=== PATIENT | female | born 1980 | race Asian ===

== ENCOUNTER 2016-12-11 05:07 | Day surgery (SDC) | payer BC ==
[2016-12-06 13:36] VITALS: BMI 27.4
[2016-12-11] MEDS ORDERED: IBUPROFEN 400 MG TABLET (FP) PO PRN (08:22)
[2016-12-11] MEDS ORDERED: ACETAMINOPHEN 325 MG TABLET (FP) PO PRN (08:22)
--- NOTE | 2016-12-11 08:22 | HP ---
History & Physical Update - History History: No Change - Physical Physical: No Change - Assessment Assessment: No Change - Plan Plan: No Change
[2016-12-11] MEDS ORDERED: BUPIVACAINE HCL/PF 0.5% (5MG/ML) 10 ML VIAL ONE (11:08)
[2016-12-11] MEDS ORDERED: MIDAZOLAM HCL 2 MG/2 ML SINGLE DOSE VIAL ONE (11:33)
--- NOTE | 2016-12-11 11:52 | OP ---
Operative Note - Note: Operative Date: 12/11/16 Pre-Operative Diagnosis: Voluntary Sterilization. Ovarian cyst Operation: Laparscopic bilateral salpingectomy. Left ovarian cystectomy Findings: 2-3 cm paraovarian cyst normal fallopian tubes Post-Operative Diagnosis: Same as Pre-op Surgeon: Stefanie Yu Child Guidance Counselor: Nayla Hernandes Anesthesia: General Estimated Blood Loss (mls): 5 Operative Report Dictated: Yes
[2016-12-11] MEDS ORDERED: PROPOFOL 20 ML ONE (12:06)
[2016-12-11] MEDS ORDERED: ceFAZolin SODIUM 1 GM VIAL IVPB ONE (12:10)
[2016-12-11] MEDS ORDERED: NEOSTIGMINE METHYLSULFATE 0.5 MG/ML - 10 ML MDV ONE (12:26)
[2016-12-11] MEDS ORDERED: BUPIVACAINE HCL/PF 0.5% (5MG/ML) 10 ML VIAL IJ ONE ×2 (12:31)
[2016-12-11] MEDS ORDERED: oxyCODONE HCL 5 MG TABLET PO PRN (13:04)
[2016-12-11] MEDS ORDERED: PROMETHAZINE HCL 25 MG/1 ML VIAL IVPUSH PRN (13:04)
[2016-12-11 13:56] VITALS: TEMP 97.8
[2016-12-11 16:56] VITALS: BP 106/58; PULSE 54
--- NOTE | 2016-12-12 10:40 | OP ---
DATE OF OPERATION: 12/11/2016 PREOPERATIVE DIAGNOSES: Ovarian cyst and multiparity, voluntary sterilization. OPERATION: Laparoscopic bilateral salpingectomy and left ovarian cystectomy. SURGEON: Raegan Rojas MD GENETIC SUPERVISOR: Nayla Hernandes DO ANESTHESIA: General. ANESTHESIOLOGIST: Farhan Hernandez MD FINDINGS: Left paraovarian cyst about 3 cm and normal tubes and ovaries. DESCRIPTION OF PROCEDURE: Patient was taken to the operating room, placed in dorsal lithotomy position, prepped and draped in the usual sterile fashion. A timeout was performed in accordance with hospital regulation. Headley catheter was inserted into the bladder. Attention was then drawn to the umbilicus where a 5-mm umbilical incision was made. Veress needle was inserted into the cavity. Approximately 3-4 L of CO2 were insufflated in the cavity. Veress needle was then removed, and a 5-mm trocar was inserted. Laparoscope and camera were attached. Visualization revealed normal tubes and a right 3-cm ovarian cyst. Trocars were inserted under direct visualization on the left and the right side via two 5-mm incisions and trocars were inserted. Grasper and LigaSure were then attached. Visualization of the tubes bilaterally. Cauterization of the tubes bilaterally was then done. Both tubes were submitted to Pathology. Cauterization and cutting of the tubes. Paraovarian cyst was noted and cystectomy was performed and cyst was removed. Hemostasis was achieved. All instruments were then removed. CO2 was removed from the abdomen. Estimated blood loss: 3 mL. Incision was then closed using 3-0 Vicryl in subcuticular fashion, was washed and dressed. The patient had tolerated the procedure well, was taken to recovery room in stable condition. ESTIMATED BLOOD LOSS: 3 mL RAEGAN ROJAS M.D. [id number]
--- NOTE | 2016-12-12 12:47 | PATH ---
Surgical Pathology Report Patient Name: NAILA NAVARRO [facility]. Rec. #: [id number] /Age/Gender: 1980 (Age: 36) / F Account: [id number] Location: [facility] SURGICAL Taken: 12/11/2016 Received: 12/11/2016 Reported: 12/12/2016 Physicians: Stefanie Yu M.D. Specimen(s) Received A: LEFT FALLOPIAN TUBE B: RIGHT FALLOPIAN TUBE C: RIGHT OVARIAN CYST Clinical History Ovarian cyst, multiparity, voluntary sterilization Final Diagnosis A. FALLOPIAN TUBE, LEFT, SALPINGECTOMY: FIMBRIATED PORTION OF FALLOPIAN TUBE WITH COMPLETE CROSS SECTION. B. FALLOPIAN TUBE, RIGHT, SALPINGECTOMY: PORTION OF FALLOPIAN TUBE WITH COMPLETE CROSS SECTION. C. OVARY, RIGHT, CYST, CYSTECTOMY: BENIGN SEROUS CYSTADENOMA. ADHESED PORTIONS OF FALLOPIAN TUBE WITH PARATUBAL CYST. FIBROVASCULAR AND FIBROUS ADHESIONS. Electronically Signed Jamison Altamirano M.D. Gross Description A. Received in formalin labelled "left fallopian tube" is a 4.7 cm long x 0.5 cm diameter portion of fallopian tube including the fimbriated end. No focal lesions are identified. Residential Glazier sections are submitted in one cassette. B. Received in formalin labelled "right fallopian tube" is a 5.4 cm long by up to 0.5 cm diameter portion of tissue consistent with portion of fallopian tube. No definite fimbriated end is identified. Residential Glazier sections are submitted in one cassette. C. Received in formalin labelled "right ovarian cyst" is 2 portions of barger and brown tissue measuring in aggregate 3.0 x 1.5 x 0.8 cm. Cut surface reveals a focally cystic interior with a smooth lining. Sectioned and totally submitted in 2 cassettes. [facility]/12/11/2016 [facility]/12/11/2016
== END 2016-12-11 17:18 | disposition home or self-care (01) ==
LOC: JASU-SURG 05:07
PROVIDERS: ATTEND Obstetrics & Gynecology
PROC: 0UB14ZZ Excision of Left Ovary, Percutaneous Endoscopic Approach (ICD-10-PCS; 2016-12-11)
PROC: 0UB74ZZ Excision of Bilateral Fallopian Tubes, Percutaneous Endoscopic Approach (ICD-10-PCS; principal; 2016-12-11 10:45)
DX: Z30.2 Encounter for sterilization (principal); N83.202 Unspecified ovarian cyst, left side
CPT/HCPCS: 84703; 88302-TC; 88307-TC; 94760